=== PATIENT | female | born 1970 | race African-American/Black ===

== ENCOUNTER 2017-09-06 09:21 | Emergency (ER) | payer OTHER ==
[~2017-09-06] VITALS: Ht 167.6 cm; Wt 73.2 kg
[2017-09-06 10:18] LABS: APPEARANCE CLOUDY ((CLEAR)); BILIRUBIN SMALL; BLOOD NEGATIVE; COLOR AMBER ((YELLOW)); GLUCOSE (STRIP) NEGATIVE; KETONES 5; LEUKOCYTES NEGATIVE; NITRITE NEGATIVE; PROTEIN (STRIP) 100; SPECIFIC GRAVITY 1.033 (1.000-1.030)
[2017-09-06 10:28] LABS: BACTERIA RARE /HPF; EPITHELIAL CELLS 3+ /HPF; MUCUS 4+ /LPF; UCUL ADDED? YES
[2017-09-06 10:31] LABS: HEMATOCRIT 38.6 % (36.0-46.0); MCH 28.1 PG (29.0-34.0); MCHC 33.7 G/DL (30.0-36.0); MCV 83.5 FL (83-99); PLATELET COUNT 330 K/uL (156-360); RBC DIS.WIDTH-CV 12.9 % (11.8-14.6); RBC DIS.WIDTH-SD 38.8 % (39-53); RED BLOOD COUNT 4.62 M/uL (3.80-5.20); WHITE BLOOD COUNT 6.2 K/uL (4.1-10.2)
[2017-09-06 10:41] LABS: ALBUMIN 3.2 g/dL (3.2-4.8); CHLORIDE 104 mEq/L (99-109)
[2017-09-06 10:42] LABS: POTASSIUM 3.2 mEq/L (3.7-5.4); SODIUM 140 mEq/L (136-147)
[2017-09-06 10:44] LABS: GLUCOSE 110 mg/dL (70-99); TOTAL PROTEIN 6.3 g/dL (6.4-8.3)
[2017-09-06 10:46] LABS: TOTAL BILIRUBIN 0.4 mg/dL (0.0-1.0)
[2017-09-06 10:47] LABS: ALKALINE PHOSPHATASE 88 IU/L (3-129); CREATININE 0.8 mg/dL (0.6-1.3); GFR ESTIMATE (CALCULATED) > 59 mL/min/
[2017-09-06 10:49] LABS: AST (GOT) 13 IU/L (2-34); UREA NITROGEN (BUN) 8 mg/dL (9-23)
[2017-09-06 10:50] LABS: ALT (GPT) 16 IU/L (3-49)
[2017-09-06 10:56] LABS: QUANTITATIVE HCG < 4.0 MIU/ML
[2017-09-06 12:54] LABS: LIPASE 5 U/L (1.0-51.0)
[2017-09-06] MEDS ORDERED: FLAGYL500 MG PO (14:14)
[2017-09-06 14:37] VITALS: BP 18/78
== END 2017-09-06 14:39 | disposition home or self-care (01) ==
LOC: EME 09:21
DX: K52.9 Noninfective gastroenteritis and colitis, unspecified (principal); R10.13 Epigastric pain
CPT/HCPCS: 74177; 80053; 81003; 83690; 84702; 85027; 87086; 87177; 87493; 87506; 99281; 99284; J1885; J7030